=== PATIENT | male | born 1970 | race Caucasian/White ===

== ENCOUNTER 2018-05-04 16:34 | Observation (INO) ==
[2018-05-04] MEDS ORDERED: Nitroglycerin 0.4 MG TAB.SUBL SL ONE (16:56)
--- NOTE | 2018-05-04 16:59 | Emergency Department Note ---
Disposition Clinical Impression: Chest pain Disposition: Home, Self-Care Condition: Good Time of Disposition: 20:57 Chest Pain HPI - General Chief Complaint: ED Chest Pain Stated Complaint: chest pain Time Seen by Provider: 05/04/18 16:48 Source: patient, EMS Limitations: no limitations Vital Signs Reviewed: Yes Nursing Notes Reviewed: Yes - History of Present Illness HPI Narrative: 48-year-old male presents from home for abrupt onset dyspnea and chest pain. 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 He had sudden onset dyspnea with left-sided chest tightness. Associated with nausea, dyspnea. He had tingling in his bilateral arms and head. Out, EMS provided 81 mg aspirin 4 as well as some little nitroglycerin 1. Single nitroglycerin did not improve his chest pain. PMH: Hypertension, hyperlipidemia, diabetes mellitus type 2 on oral anti- hyperglycemics, PTSD, depression, anxiety.History of CAD or ACS. Symptoms today feel different than any previous panic attack. Family history: Father at the age of 42 from [place]. Mother at age of 67 from [place]. Grandfather at age of 67 from [place]. ROS: Positive: As above Negative: Fever, chills, vomiting, palpitations, diaphoresis, abdominal pain, unusual back pain, arm heaviness, jaw pain. Severity scale (1-10): 6 - Related Data Home Medications Medication Instructions Recorded Confirmed Atorvastatin [Lipitor] 20 mg PO HS 10/08/17 05/04/18 Cholecalciferol (D-3) [Vitamin D] 1,000 unit PO DAILY 10/08/17 05/04/18 Lisinopril/Hydrochlorothiazide 1 tab PO DAILY 10/08/17 05/04/18 [Zestoretic 20-12.5 mg Tablet] Metoprolol Succinate 100 mg PO DAILY 10/08/17 05/04/18 Multivit-Min/FA/Lycopen/Lutein 1 tab PO DAILY 10/08/17 05/04/18 [Centrum Silver Tablet] Vitamin B Complex Vit C No.4 150 mg PO DAILY 10/08/17 05/04/18 [Super B Complex] Aspirin [Lo-Dose Aspirin EC] 81 mg PO DAILY 01/28/18 05/04/18 Meloxicam [Mobic] 7.5 mg PO BID 05/04/18 05/04/18 PARoxetine HCl [Paroxetine HCl] 40 mg PO DAILY 05/04/18 05/04/18 Prazosin HCl [Minipress] 2 mg PO HS 05/04/18 05/04/18 clonazePAM [Klonopin] 0.5 mg PO DAILY PRN 05/04/18 05/04/18 metFORMIN [Glucophage] 500 mg PO BIDWM 05/04/18 05/04/18 Allergies Allergy/AdvReac Type Severity Reaction Status Date / Time No Known Allergies Allergy Verified 01/28/18 13:04 All systems ED: reviewed and negative except as stated. Review of Systems: As Per HPI Chest Pain PMH - Past Medical History Medical history: Reports: arthritis, diabetes, hyperlipidemia, hypertension, kidney stones, renal disease, other Surgical history: Reports: other Psychiatric history: Reports: anxiety, depression, PTSD - Social History Smoking Status: Current some day smoker Alcohol use: Reports: occasionally Drug use: Reports: none Physical Exam Vital Signs Reviewed General: Patient is alert, oriented, and in no acute distress. Head: atraumatic, normocephalic Eye: normal appearance, no scleral icterus, no conjunctival injection ENT: mucous membranes moist, normal external ear exam Neck: normal inspection, trachea midline, full ROM Chest: normal inspection, symmetric chest rise Respiratory: Good respiratory effort. Bilateral breath sounds are clear without wheezing, crackles, or rhonchi. Cardiovascular: Regular rate and rhythm. No clicks, rubs, gallops, or murmors. Normal heart sounds.lateral radial pulses 2/4 equal. No JVD. Abdomen: Bowel sounds present normoactive x-4 quadrants. Abdomen is soft, nondistended, and nontender. No guarding or rebound. No organomegaly noted. Musculoskeletal: Spontaneously moving all extremities. Skin: warm, Diaphoretic, intact. Neuro: Alert and oriented x4. Sensation light touch intact. Psych: Patient's affect is appropriate for situation. - General Limitations: no limitations General appearance: alert, in no apparent distress Course Course Narrative: Concern for ACS. Patient's symptoms onset just prior to arrival just initial troponin can be falsely low. Family history is concerning given his father passed of an [place] age 42. Recommend admission for chest pain rule out ACS. Patient's workup is unremarkable. The above of the patient. He has never had a cardiac workup. I am concerned given his family history of his father dying of [place] at 42. He is agreeable to admission for continued evaluation and management. Chest X-Ray 05/04/18 16:56 IMPRESSION: No acute process. D/ / German Multani MD / German Multani MD Interpreting Provider: German Multani MD Vital Signs Temperature 98.5 F 05/04/18 16:38 Pulse Rate 111 05/04/18 16:38 Respiratory Rate 16 05/04/18 16:38 Blood Pressure 107/81 05/04/18 16:38 O2 Sat by Pulse Oximetry 97 05/04/18 16:38 Temperature 98.5 F 05/04/18 16:38 Pulse Rate 111 05/04/18 16:38 Respiratory Rate 16 05/04/18 16:38 Blood Pressure 107/81 05/04/18 16:38 O2 Sat by Pulse Oximetry 95 05/04/18 17:48 Oxygen Delivery Oxygen Delivery Nasal Cannula Chest Pain - Lab Data Result diagrams: 05/04/18 17:20 05/04/18 17:20 Lab Results 05/04/18 05/04/18 05/04/18 Range/Units 17:20 17:20 17:20 WBC 10.0 (4.3-11.1) K/mcL RBC 4.64 (4.19-5.50) M/mcL Hgb 14.5 (12.9-16.9) g/dL Hct 41.4 (37.5-50.1) % MCV 89.2 (83.0-100.0) fL MCH 31.3 (28.0-33.3) pg MCHC 35.0 (31.6-35.5) g/dL RDW 14.1 (11.5-14.5) % Plt Count 211 (140-400) K/mcL MPV 10.3 (9.4-12.4) fL Immature Gran % 0.3 (0-4) % Seg Neutrophils % 71.6 % Lymphocytes % 17.1 % Monocytes % 8.4 % Eosinophils % 2.3 % Basophils % 0.3 % Neutrophils # 7.1 (1.6-8.9) K/mcL Lymphocytes # 1.7 (0.6-4.6) K/mcL Monocytes # 0.8 (0.0-1.3) K/mcL Eosinophils # 0.2 (0.0-0.6) K/mcL Basophils # 0.0 (0.0-0.2) K/mcL PT 10.9 (9.4-12.1) Seconds INR 1.0 APTT 27.9 (26.0-36.0) Seconds Sodium 134 L (136-145) mEq/L Potassium 4.0 (3.5-5.1) mEq/L Chloride 97 L (98-107) mEq/L Carbon Dioxide 25 (23-29) mEq/L BUN 27 H (6-20) mg/dL Creatinine 1.18 (0.70-1.30) mg/dL Est GFR ( Amer) > 60 (> 60) Est GFR (Non-Af Amer) > 60 (> 60) BUN/Creatinine Ratio 23 (6-26) Glucose 119 H (70-105) mg/dL Calculated Osmolality 284 (280-300) Calcium 10.5 H (8.6-10.3) mg/dL Troponin I < 0.03 (< 0.04) ng/mL Heart Score - Score History: Moderately Suspicious EKG: Non Specific repolarisation Disturbance Age: Less than 45 Risk Factors: Equal/Greater than 3 risk factor or history of atherosclerotic disease Troponin: Less than normal limit HEART Score Total: 4
[2018-05-04 17:45] LABS: Basophils % 0.3 %; Eosinophils # 0.2 K/mcL (0.0-0.6); Eosinophils % 2.3 %; Hematocrit 41.4 % (37.5-50.1); Hemoglobin 14.5 g/dL (12.9-16.9); Immature Granulocytes % 0.3 % (0-4); Lymphocytes # 1.7 K/mcL (0.6-4.6); Lymphocytes % 17.1 %; Mean Corpuscular Hemoglobin 31.3 pg (28.0-33.3); Mean Corpuscular Volume 89.2 fL (83.0-100.0); Mean Platelet Volume 10.3 fL (9.4-12.4); Monocytes # 0.8 K/mcL (0.0-1.3); Monocytes % 8.4 %; Neutrophils # 7.1 K/mcL (1.6-8.9); Platelet Count 211 K/mcL (140-400); Red Blood Count 4.64 M/mcL (4.19-5.50); Red Cell Distribution Width 14.1 % (11.5-14.5); Segmented Neutrophils % 71.6 %
[2018-05-04 17:50] LABS: Prothrombin Time 10.9 Seconds (9.4-12.1)
[2018-05-04 17:52] LABS: Activated Partial Thrombo Time 27.9 Seconds (26.0-36.0)
[2018-05-04 18:05] LABS: BUN/Creatinine Ratio 23 (6-26); Blood Urea Nitrogen 27 mg/dL (6-20); Calcium 10.5 mg/dL (8.6-10.3); Carbon Dioxide 25 mEq/L (23-29); Chloride 97 mEq/L (98-107); Glucose 119 mg/dL (70-105); Osmolality,Calculated 284 (280-300); Sodium 134 mEq/L (136-145); Troponin I < 0.03 ng/mL (< 0.04); eGFR For Non-African Americans > 60 (> 60)
--- NOTE | 2018-05-04 18:09 | Emergency Department Note ---
Disposition Clinical Impression: Chest pain Disposition: Home, Self-Care Condition: Undetermined Forms: ED Satisfaction Letter General Adult HPI - General Chief complaint: ED Chest Pain Stated complaint: chest pain Time Seen by Provider: 05/04/18 16:48 Source: patient, EMS Limitations: no limitations - History of Present Illness Pain Scale: 6 - Related Data Home Medications Medication Instructions Recorded Confirmed Atorvastatin [Lipitor] 40 mg PO HS 10/08/17 01/28/18 Cholecalciferol (D-3) [Vitamin D] 1,000 unit PO DAILY 10/08/17 01/28/18 Lisinopril/Hydrochlorothiazide 1 tab PO DAILY 10/08/17 01/28/18 [Zestoretic 20-12.5 mg Tablet] Metoprolol Succinate 100 mg PO DAILY 10/08/17 01/28/18 Multivit-Min/FA/Lycopen/Lutein 1 tab PO DAILY 10/08/17 01/28/18 [Centrum Silver Tablet] Vitamin B Complex Vit C No.4 150 mg PO DAILY 10/08/17 01/28/18 [Super B Complex] Aspirin [Lo-Dose Aspirin EC] 81 mg PO DAILY 01/28/18 01/28/18 Previous Rx's Medication Instructions Recorded Clindamycin [Cleocin] 150 mg PO Q6HR #7 capsule 01/27/18 HYDROcodone/Acet 5/325 mg [[place] 1 tab PO Q8H PRN 5 Days #15 tab 01/27/18 5-325 mg] Allergies Allergy/AdvReac Type Severity Reaction Status Date / Time No Known Allergies Allergy Verified 01/28/18 13:04 Past Medical History - Past Medical History Medical history: Reports: arthritis, diabetes, hyperlipidemia, hypertension, kidney stones, renal disease, other Surgical history: Reports: other Psychiatric history: Reports: anxiety, depression, PTSD - Social History Smoking Status: Current some day smoker Smokeless Tobacco Status: Yes Alcohol use: Reports: occasionally Drug use: Reports: none Physical Exam - General Limitations: no limitations General appearance: alert, in no apparent distress Course Vital Signs Temperature 98.5 F 05/04/18 16:38 Pulse Rate 111 05/04/18 16:38 Respiratory Rate 16 05/04/18 16:38 Blood Pressure 107/81 05/04/18 16:38 O2 Sat by Pulse Oximetry 97 05/04/18 16:38 Temperature 98.5 F 05/04/18 16:38 Pulse Rate 111 05/04/18 16:38 Respiratory Rate 16 05/04/18 16:38 Blood Pressure 107/81 05/04/18 16:38 O2 Sat by Pulse Oximetry 95 05/04/18 17:48 Oxygen Delivery Oxygen Delivery Nasal Cannula Medical Decision Making - Lab Data Result diagrams: 05/04/18 17:20 05/04/18 17:20 Lab Results 05/04/18 05/04/18 05/04/18 Range/Units 17:20 17:20 17:20 WBC 10.0 (4.3-11.1) K/mcL RBC 4.64 (4.19-5.50) M/mcL Hgb 14.5 (12.9-16.9) g/dL Hct 41.4 (37.5-50.1) % MCV 89.2 (83.0-100.0) fL MCH 31.3 (28.0-33.3) pg MCHC 35.0 (31.6-35.5) g/dL RDW 14.1 (11.5-14.5) % Plt Count 211 (140-400) K/mcL MPV 10.3 (9.4-12.4) fL Immature Gran % 0.3 (0-4) % Seg Neutrophils % 71.6 % Lymphocytes % 17.1 % Monocytes % 8.4 % Eosinophils % 2.3 % Basophils % 0.3 % Neutrophils # 7.1 (1.6-8.9) K/mcL Lymphocytes # 1.7 (0.6-4.6) K/mcL Monocytes # 0.8 (0.0-1.3) K/mcL Eosinophils # 0.2 (0.0-0.6) K/mcL Basophils # 0.0 (0.0-0.2) K/mcL PT 10.9 (9.4-12.1) Seconds INR 1.0 APTT 27.9 (26.0-36.0) Seconds Sodium 134 L (136-145) mEq/L Potassium 4.0 (3.5-5.1) mEq/L Chloride 97 L (98-107) mEq/L Carbon Dioxide 25 (23-29) mEq/L BUN 27 H (6-20) mg/dL Creatinine 1.18 (0.70-1.30) mg/dL Est GFR ( Amer) > 60 (> 60) Est GFR (Non-Af Amer) > 60 (> 60) BUN/Creatinine Ratio 23 (6-26) Glucose 119 H (70-105) mg/dL Calculated Osmolality 284 (280-300) Calcium 10.5 H (8.6-10.3) mg/dL Troponin I < 0.03 (< 0.04) ng/mL Attestation Statement - Attestation Attestation: I examined this patient and my medical decision-making was reviewed with the Resident Physician. I agree with the documented findings, disposition and treatment plan as described except to the extent set forth below. 48-year-old male presents emergency room for chest pain. 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 States he was out in the heat getting overheated and thought that it caused his symptoms of some shortness of breath bilateral arm tingling and some chest discomfort. He does have a significant family history of coronary artery disease. He has a negative troponin here in the ER. Normal labs. Normal EKG. I advised the patient that I would like him to stay in the hospital but he has declined. He states he would like to go home. He does not want to be in the hospital. Explain the risks that if he was having a heart problem that we would not be able to monitor this he still declined and would like to go home. Recommended outpatient follow-up with a primary physician.
[2018-05-05] MEDS ORDERED: Naloxone 0.4 MG/ML INJ IVP PRN (00:03)
[2018-05-05] MEDS ORDERED: *HR* Dextrose 50 % in Water (Syg) 50 ML SYRINGE IVP PRN (00:04)
[2018-05-05] MEDS ORDERED: D5% in Water 1,000 ML IVC PRN (00:04)
[2018-05-05] MEDS ORDERED: Dextrose Gel 15 GM/37.5 ML TUBE PO PRN ×2 (00:04)
--- NOTE | 2018-05-05 00:07 | Internal Med History&Physical ---
Date of Encounter: 05/04/18 Time of Encounter: 23:30 Internal Medicine - H&P: HPI Chief complaint: Chest pain Admitted From: Emergency Dept Plans for Post Hospital Care: Home History of present illness: Mr. 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 Pain radiated to his left arm, with a tingling sensation. He went and got his fiance who the called EMS. He has a history of service and has had heat stroke in the past, but he says this was different. He has had chest pain in the past as well, but he usually dismisses it until it goes away. He describes this pain as a sharp poker going through his chest to his back. He denies vision changes, nausea and vomiting. He has no abdominal pain, diarrhea or constipation. Currently he denies chest pain and shortness of breath. He received ASA and nitro in the ambulance which helped his pain. In the ER his troponin was negative, chest x-ray showed no acute process and EKG was unremarkable. He has a significant family history of cardiac problems, including his father having a heart attack in his early 40's. He was admitted for further management of his chest pain. He has typical medical care at the [place], has had a stress test in the past but more than 3 years ago. Past Med Surg Social Fam HX - Past Medical History Medical history: arthritis, diabetes, hyperlipidemia, hypertension, kidney stones, renal disease, other Additional medical history: sleep apnea Psychiatric history: anxiety, depression, PTSD - Past Surgical History Surgical History: other Additional surgical history: neck x 2. enrico knee scopes. enrico shoulder scopes. l1 s1 fusion - Social History Smoking Status: Current some day smoker Smokeless Tobacco Status: Yes Alcohol use: occasionally Drug use: none - Family History Father Age at : 42 Cause of : OR Hx Family Cardiac Disorders: Yes (OR) Mother Living Status: Cause of : OR Hx Family Cardiac Disorders: Yes (OR) Hx Family Endocrine Disorder: Yes (DM) Brother Hx Family Cardiac Disorders: Yes (HTN) Hx Family Endocrine Disorder: Yes (DM) Internal Medicine - H&P: Meds Atorvastatin [Lipitor] 20 mg PO HS 10/08/17 [History] Cholecalciferol (D-3) [Vitamin D] 1,000 unit PO DAILY 10/08/17 [History] Lisinopril/Hydrochlorothiazide [Zestoretic 20-12.5 mg Tablet] 1 tab PO DAILY [History] Metoprolol Succinate 100 mg PO DAILY 10/08/17 [History] Multivit-Min/FA/Lycopen/Lutein [Centrum Silver Tablet] 1 tab PO DAILY 10/08/17 [ History] Vitamin B Complex Vit C No.4 [Super B Complex] 150 mg PO DAILY 10/08/17 [History ] Aspirin [Lo-Dose Aspirin EC] 81 mg PO DAILY 01/28/18 [History] Meloxicam [Mobic] 7.5 mg PO BID 05/04/18 [History] PARoxetine HCl [Paroxetine HCl] 40 mg PO DAILY 05/04/18 [History] Prazosin HCl [Minipress] 2 mg PO HS 05/04/18 [History] clonazePAM [Klonopin] 0.5 mg PO DAILY PRN 05/04/18 [History] metFORMIN [Glucophage] 500 mg PO BIDWM 05/04/18 [History] 3 Allergy/AdvReac Type Severity Reaction Status Date / Time No Known Allergies Allergy Verified 01/28/18 13:04 All Systems PM: A 10-system review of systems was performed and is negative for pertinent findings except as documented above in the HPI. - Constitutional Vitals: Temp Pulse Resp BP Pulse Ox 97.9 F 91 16 114/68 97 05/04/18 23:35 05/04/18 23:35 05/04/18 23:35 05/04/18 23:35 05/04/18 23:35 General appearance: Present: cooperative, A&O X 3, pleasant, no acute distress, answers questions appropriately Exam: as above - Head Head exam: Present: normal inspection - Eye Eye exam: Present: EOMI, normal appearance - Neck Neck exam general surgery: Absent: tenderness - Respiratory Respiratory exam: Present: CTAB. Absent: chest wall tenderness, decreased breath sounds, wheezes - Cardiovascular Cardiovascular exam: Present: RRR. Absent: diastolic murmur, systolic murmur - GI/Abdominal GI/Abdominal exam: Present: normal bowel sounds, soft. Absent: tenderness - Extremities Exam Extremities exam: Present: warm, radial pulses palpable and symmetrical. Absent : pedal edema, tenderness - Neurological Exam Neurological exam: Present: no focal deficits, strengths equal and symetr throughout. Absent: facial droop, speech deficit - Skin Skin exam: Present: dry, normal color, warm Internal Med - H&P Results - Labs CBC & Chem 7: 05/05/18 06:05 05/05/18 06:05 Labs: Cardiac Enzymes 05/04/18 Range/Units 23:19 Troponin I < 0.03 (< 0.04) ng/mL - Assessment and plan (1) Chest pain Current Visit: Yes Status: Acute Assessment and plan: Now resolved. 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 Qualifiers: Hypertension type: essential hypertension Qualified Code(s): I10 - Essential (primary) hypertension - Time Spent With Patient Total time spent is greater than 50% in coordination of care (as documented) at patient's floor/unit and/or counseling patient: Greater than 35 minutes
[2018-05-05] MEDS: Insulin LISPRO 300 UNITS/3 ML VIAL SQ SCH ×2 (05:54→12:38)
[2018-05-05 06:48] LABS: Hematocrit 41.1 % (37.5-50.1); Mean Corpuscular HGB Conc 34.1 g/dL (31.6-35.5); Mean Corpuscular Hemoglobin 30.1 pg (28.0-33.3); Mean Corpuscular Volume 88.4 fL (83.0-100.0); Mean Platelet Volume 10.2 fL (9.4-12.4); Platelet Count 207 K/mcL (140-400); Red Blood Count 4.65 M/mcL (4.19-5.50); Red Cell Distribution Width 14.4 % (11.5-14.5)
[2018-05-05 07:08] LABS: BUN/Creatinine Ratio 21 (6-26); Blood Urea Nitrogen 23 mg/dL (6-20); Calcium 9.8 mg/dL (8.6-10.3); Carbon Dioxide 29 mEq/L (23-29); Chloride 98 mEq/L (98-107); Glucose 125 mg/dL (70-105); Osmolality,Calculated 287 (280-300); Potassium 4.2 mEq/L (3.5-5.1); Sodium 136 mEq/L (136-145); eGFR For Non-African Americans > 60 (> 60)
[2018-05-05] MEDS ORDERED: clonazePAM 0.5 MG TABLET PO PRN (07:58)
--- NOTE | 2018-05-05 08:53 | Event Note ---
Date of Encounter: 05/05/18 Time of Encounter: 08:53 Currently Chest pain free- Presented after experiencing CP and SOB with pain radiating to left arm. Troponin negative x3 EKG with no ST Twave abnormalities He does ahve a strong cardiac hx with his Father having a CT in his 40's. The patient had a stress test 3 yrs ago at the [place] which he states was negative. His BP has been elevated this am however he did receive his BP meds. We will have him undergo cardiac stress test and resume home medications
[2018-05-05] MEDS ORDERED: Metoprolol XL (24 HR) Succ 50 MG TAB.ER.24H PO SCH (09:00)
[2018-05-05] MEDS ORDERED: Aspirin Enteric Coated 81 MG Tablet PO SCH (09:00)
[2018-05-05] MEDS ORDERED: Cholecalciferol (D-3) 1,000 UNIT TABLET PO SCH (09:00)
[2018-05-05] MEDS ORDERED: Lisinopril-HCTZ 20-12.5mg TABLET PO SCH (09:00)
[2018-05-05] MEDS ORDERED: Regadenoson 0.4 MG/5 ML SYRINGE IVP ONE ×2 (10:29→10:38)
--- NOTE | 2018-05-05 14:06 | Discharge Summary ---
- NOTES TO OUTPATIENT PROVIDER Notes to Outpatient Provider: underwent cardiac stress tets which was neative for any ischemia or infarct Orders not resulted at time of discharge: Pending orders 05/05/18 08:48 NM azra perf SPECT multi [NM] Routine Date of Encounter: 05/05/18 Time of Encounter: 14:06 - Discharge Diagnosis (1) Chest pain Priority: Primary Status: Acute Qualifiers: Chest pain type: unspecified Qualified Code(s): R07.9 - Chest pain, unspecified (2) Diabetes Priority: Primary Status: Acute Qualifiers: Diabetes mellitus type: type 2 Diabetes mellitus group home insulin use: without adjunct faculty for medical terminology use Diabetes mellitus complication status: without complication Qualified Code(s): E11.9 - Type 2 diabetes mellitus without complications (3) Hypertension Priority: Secondary Status: Acute Qualifiers: Hypertension type: essential hypertension Qualified Code(s): I10 - Essential (primary) hypertension Hospital course: Mr. Headley is a 48 year old male with past medical hx DM HLD HTN renal disease Currently Chest pain free- Presented after experiencing CP and SOB with pain radiating to left arm he was working outside in the heat for several hours . Troponin negative x3 EKG with no ST Twave abnormalities He does ahve a strong cardiac hx with his Father having a GA in his 40's. The patient had a stress test 3 yrs ago at the [place] which he states was negative. His BP has been elevated this am however he did not receive his BP meds. He underwent a cardiac stress test which was negative for any ischemia or infarct. I suspect his CP was rt elevated BP - he will need to monitor BP and keep log. He will follow up with PCP since this provider knows him best and can adjust medications accordingly- cont home medications He is hemodynamically stable and ready for discharge Discharge discussed with: patient - Time Spent with Patient Total time spent providing and/or coordinating discharge services: - Discharge Medications Home Medications: Atorvastatin [Lipitor] 20 mg PO HS 10/08/17 [History] Cholecalciferol (D-3) [Vitamin D] 1,000 unit PO DAILY 10/08/17 [History] Lisinopril/Hydrochlorothiazide [Zestoretic 20-12.5 mg Tablet] 1 tab PO DAILY [History] Metoprolol Succinate 100 mg PO DAILY 10/08/17 [History] Multivit-Min/FA/Lycopen/Lutein [Centrum Silver Tablet] 1 tab PO DAILY 10/08/17 [ History] Vitamin B Complex Vit C No.4 [Super B Complex] 150 mg PO DAILY 10/08/17 [History ] Aspirin [Lo-Dose Aspirin EC] 81 mg PO DAILY 01/28/18 [History] Meloxicam [Mobic] 7.5 mg PO BID 05/04/18 [History] PARoxetine HCl [Paroxetine HCl] 40 mg PO DAILY 05/04/18 [History] Prazosin HCl [Minipress] 2 mg PO HS 05/04/18 [History] clonazePAM [Klonopin] 0.5 mg PO DAILY PRN 05/04/18 [History] metFORMIN [Glucophage] 500 mg PO BIDWM 05/04/18 [History] Allergies/Adverse Reactions: 3 Allergy/AdvReac Type Severity Reaction Status Date / Time No Known Allergies Allergy Verified 01/28/18 13:04 Date of admission: 05/04/18 20:05 [facility] care [facility] Discharging clinician: Josephine Rosado Anticipated date of discharge: 05/05/18 - Constitutional Vitals: Temp Pulse Resp BP Pulse Ox 98.7 F 103 18 112/72 97 05/05/18 12:18 05/05/18 12:18 05/05/18 12:18 05/05/18 12:18 05/05/18 12:18 General appearance: Present: cooperative, A&O X 3, pleasant, no acute distress, answers questions appropriately Exam: see above - Head Head exam: Present: atraumatic, normocephalic - Eye Eye exam: Present: PERRL, conjuntiva pink, sclera anicteric Pupils: Present: PERRL - Neck Neck exam general surgery: Present: supple, trachea midline. Absent: lymphadenopathy - Respiratory Respiratory exam: Present: CTAB. Absent: accessory muscle use, rales, rhonchi, wheezes - Cardiovascular Cardiovascular exam: Present: RRR, +S1, +S2. Absent: diastolic murmur, gallop, rubs, systolic murmur - GI/Abdominal GI/Abdominal exam: Present: normal bowel sounds, soft, no peritoneal signs. Absent: distended, tenderness - Extremities Exam Extremities exam: Present: warm, radial pulses palpable and symmetrical. Absent : calf tenderness, cyanotic, pedal edema - Neurological Exam Neurological exam: Present: CN II-XII intact, oriented X3, no focal deficits. Absent: pronater drift, facial droop, speech deficit - Skin Skin exam: Present: dry, intact - Patient Status Disposition: Home, Self-Care Condition: Good Functional capacity at discharge: independent ambulation Overall status at discharge: patient is back to baseline - Discharge Instructions Instructions: Chest Pain (DC), Diabetes Mellitus Type 2 in Adults (DC), Chronic Hypertension (DC) [facility] Provider[facility] - 05/12/18 1:30 pm - Diet and Activity Activity: resume usual activities as tolerated Diet: low salt diet
[2018-05-05 15:56] VITALS: BP 123/79
[2018-05-05] MEDS ORDERED: *HR* Heparin 5,000 UNIT/ML VIAL SQ SCH (18:00)
--- NOTE | 2018-05-08 08:46 | Electrocardiograph Report ---
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
== END 2018-05-05 16:50 | disposition home or self-care (01) ==
LOC: EMEROOARM 16:34 → 3BNU 16:34
PROVIDERS: ADMIT Pediatrics; ATTEND Pediatrics

== ENCOUNTER 2019-03-08 01:12 | Inpatient (IN) ==
--- NOTE | 2019-03-08 01:31 | Emergency Department Note ---
Disposition Clinical Impression: Suicidal ideation Disposition: Still a Patient Condition: Good Referrals: NONE,PCP [Primary Care Provider] - Time of Disposition: 06:44 Psych HPI - General Stated Complaint: SI Time Seen by Provider: 03/08/19 01:14 Source: patient, EMS Mode of arrival: EMS Limitations: no limitations Nursing Notes Reviewed: Yes Vital Signs Reviewed: Yes - History of Present Illness HPI Narrative: 49 yo male presents via EMS after a suicide attempt. The patient was intoxicated and attempted jumping off a bridge before being talked down by police. Pt states his depression got the better of him after he received a phone call from his oldest son on his 49th birthday and his son told him he "was worthless and he wanted to beat the shit out of him." Pt has never attempted suicide before. He has drank beer tonight and taken Marijuana in the past but denies other drug use and did not attempt overdose tonight. He denies HI, and visual and auditory hallucinations. - Related Data Home Medications Medication Instructions Recorded Confirmed Atorvastatin [Lipitor] 40 mg PO HS 10/08/17 12/16/18 Lisinopril/Hydrochlorothiazide 1 tab PO DAILY 10/08/17 12/16/18 [Zestoretic 20-12.5 mg Tablet] Metoprolol Succinate 100 mg PO DAILY 10/08/17 12/16/18 Multivit-Min/FA/Lycopen/Lutein 1 tab PO DAILY 10/08/17 12/16/18 [Centrum Silver Tablet] Meloxicam [Mobic] 7.5 mg PO DAILY 05/04/18 12/16/18 PARoxetine HCl [Paroxetine HCl] 40 mg PO QPM 05/04/18 12/16/18 metFORMIN [Glucophage] 500 mg PO BIDWM 05/04/18 12/16/18 ARIPiprazole [Abilify] 5 mg PO QPM 12/16/18 12/16/18 Aspirin [Lo-Dose Aspirin EC] 81 mg PO DAILY 12/16/18 12/16/18 Eszopiclone 1 mg PO HS 12/16/18 12/16/18 Testosterone [Striant] 30 mg PO BID 12/16/18 12/16/18 Varenicline Tartrate [Chantix 1 mg PO AD 12/16/18 12/16/18 Continuing Months Pack] Vitamin B Complex [Balanced B-50] 1 each PO DAILY 12/16/18 12/16/18 Allergies Allergy/AdvReac Type Severity Reaction Status Date / Time No Known Allergies Allergy Verified 12/16/18 07:50 All systems ED: reviewed and negative except as stated. Review of Systems: As Per HPI Constitutional: Denies: fever Cardiovascular: Denies: chest pain, dyspnea on exertion Respiratory: Denies: cough, dyspnea, wheezes Gastrointestinal: Denies: abdominal pain, nausea, vomiting Genitourinary: Denies: dysuria, hematuria Musculoskeletal: Denies: back pain, neck pain Integumentary: Denies: rash Neurological: Denies: headache Psychiatric: Reports: anxiety, depression, suicidal thoughts. Denies: homicidal thoughts, auditory hallucinations, visual hallucinations Endocrine: Denies: fatigue Past Medical History - Past Medical History Attestation: Yes The following information was validated with the patient. Source: patient Medical history: Reports: arthritis, diabetes, hyperlipidemia, hypertension, kidney stones, other Surgical history: Reports: knee replacement, orthopedic, other, other Psychiatric history: Reports: anxiety, depression, PTSD - Social History Smoking Status: Never smoker Smokeless Tobacco Status: No Alcohol use: Reports: occasionally Drug use: Reports: none Physical Exam - General Limitations: no limitations General appearance: alert, in distress (tearful on exam) - Head Head exam: other (burn grimaldo on lips from eating hot pizza several days ago) - Eye Eye exam: Present: normal appearance, EOMI - ENT ENT exam: normal exam, normal oropharynx - Neck Neck exam: Present: normal inspection. Absent: tenderness, lymphadenopathy - Chest Chest inspection: Present: normal inspection. Absent: tenderness, rash - Respiratory Respiratory exam: Present: normal lung sounds bilaterally. Absent: wheezes - Cardiovascular Cardiovascular exam: Present: regular rate, normal rhythm - Abdominal Exam Abdominal exam: Present: soft, Non-Tender. Absent: distention, guarding, rebound, rigidity - Extremities Exam Extremities exam: Present: normal inspection. Absent: tenderness, pedal edema - Neurological Exam Neurological exam: Present: alert, oriented X3 - Psychiatric Psychiatric exam: Present: depressed - Skin Skin exam: Present: warm, dry, intact Course Vital Signs Temperature 98.8 F 03/08/19 01:18 Pulse Rate 96 03/08/19 01:18 Respiratory Rate 20 03/08/19 01:18 Blood Pressure 111/78 03/08/19 01:18 O2 Sat by Pulse Oximetry 99 03/08/19 01:18 Temperature 98.8 F 03/08/19 01:18 Pulse Rate 96 03/08/19 01:18 Respiratory Rate 20 03/08/19 01:18 Blood Pressure 111/78 03/08/19 01:18 O2 Sat by Pulse Oximetry 99 03/08/19 01:18 Oxygen Delivery Oxygen Delivery Room Air Psych - MDM Narrative Medical decision making narrative: Patient presents after a suicide attempt by trying to jump off a bridge while intoxicated. We will do the med clearance labs and then consult psychiatry for further evaluation of this patient. He has no requests at this time. Patient was pink slipped at 1:26 AM on March 08. Initial EtOH was elevated at 1:30 in all other lab work was within normal limits. We will recheck the EtOH level at 4:30 AM. Repeat EtOH is 53. We will consult 1A for further management. This patient's disposition will be signed out to the day team doctor Liz and Dr. Payan. - Lab Data Result diagrams: 03/08/19 01:47 03/08/19 01:47 Lab Results 03/08/19 03/08/19 03/08/19 Range/Units 01:47 01:47 02:38 WBC 6.7 (4.3-11.1) K/mcL RBC 4.68 (4.19-5.50) M/mcL Hgb 14.0 (12.9-16.9) g/dL Hct 41.5 (37.5-50.1) % MCV 88.7 (83.0-100.0) fL MCH 29.9 (28.0-33.3) pg MCHC 33.7 (31.6-35.5) g/dL RDW 13.4 (11.5-14.5) % Plt Count 218 (140-400) K/mcL MPV 10.1 (9.4-12.4) fL Immature Gran % 0.4 (0-4) % Seg Neutrophils % 60.7 % Lymphocytes % 28.8 % Monocytes % 6.9 % Eosinophils % 2.8 % Basophils % 0.4 % Neutrophils # 4.1 (1.6-8.9) K/mcL Lymphocytes # 1.9 (0.6-4.6) K/mcL Monocytes # 0.5 (0.0-1.3) K/mcL Eosinophils # 0.2 (0.0-0.6) K/mcL Basophils # 0.0 (0.0-0.2) K/mcL Sodium 135 L (136-145) mEq/L Potassium 4.2 (3.5-5.1) mEq/L Chloride 98 (98-107) mEq/L Carbon Dioxide 22 L (23-29) mEq/L BUN 12 (6-20) mg/dL Creatinine 1.03 (0.70-1.30) mg/dL Est GFR ( Amer) > 60 (> 60) Est GFR (Non-Af Amer) > 60 (> 60) BUN/Creatinine Ratio 12 (6-26) Glucose 156 H (70-105) mg/dL Calculated Osmolality 283 (280-300) Calcium 9.2 (8.6-10.3) mg/dL Urine Color Yellow (Yellow) Urine Clarity Clear (Clear) Urine pH 6.0 (5.0-8.0) pH Units Ur Specific [place] 1.009 L (1.010-1.025) Urine Protein Negative (Neg-Trace) mg/dL Urine Glucose (UA) Normal (Normal) mg/dL Urine Ketones Negative (Negative) mg/dL Urine Blood Negative (Negative) Urine Nitrite Negative (Negative) Urine Bilirubin Negative (Negative) Urine Urobilinogen Normal (Normal) mg/dL Ur Leukocyte Esterase Negative (Negative) Salicylates < 2.5 L (15.0-30.0) mg/dL Urine Opiates Screen (Cnpgtb=413) ng/mL Ur Buprenorphine Scrn (Cutoff=5) ng/mL Acetaminophen < 10 L (10-20) mcg/mL Ur Barbiturates Screen (Kzxtjg=156) ng/mL Ur Phencyclidine Scrn (Cutoff=25) ng/mL Ur Amphetamines Screen (Mfchax=7106) ng/mL U Benzodiazepines Scrn (Ccmmmc=058) ng/mL Urine Cocaine Screen (Cutoff= 300) ng/mL U Marijuana (THC) Screen (Cutoff = 50) ng/mL Ur Drug Screen Interp Ethyl Alcohol 130 H (Less than 10) mg/dL 03/08/19 03/08/19 Range/Units 02:38 04:41 WBC (4.3-11.1) K/mcL RBC (4.19-5.50) M/mcL Hgb (12.9-16.9) g/dL Hct (37.5-50.1) % MCV (83.0-100.0) fL MCH (28.0-33.3) pg MCHC (31.6-35.5) g/dL RDW (11.5-14.5) % Plt Count (140-400) K/mcL MPV (9.4-12.4) fL Immature Gran % (0-4) % Seg Neutrophils % % Lymphocytes % % Monocytes % % Eosinophils % % Basophils % % Neutrophils # (1.6-8.9) K/mcL Lymphocytes # (0.6-4.6) K/mcL Monocytes # (0.0-1.3) K/mcL Eosinophils # (0.0-0.6) K/mcL Basophils # (0.0-0.2) K/mcL Sodium (136-145) mEq/L Potassium (3.5-5.1) mEq/L Chloride (98-107) mEq/L Carbon Dioxide (23-29) mEq/L BUN (6-20) mg/dL Creatinine (0.70-1.30) mg/dL Est GFR ( Amer) (> 60) Est GFR (Non-Af Amer) (> 60) BUN/Creatinine Ratio (6-26) Glucose (70-105) mg/dL Calculated Osmolality (280-300) Calcium (8.6-10.3) mg/dL Urine Color (Yellow) Urine Clarity (Clear) Urine pH (5.0-8.0) pH Units Ur Specific [place] (1.010-1.025) Urine Protein (Neg-Trace) mg/dL Urine Glucose (UA) (Normal) mg/dL Urine Ketones (Negative) mg/dL Urine Blood (Negative) Urine Nitrite (Negative) Urine Bilirubin (Negative) Urine Urobilinogen (Normal) mg/dL Ur Leukocyte Esterase (Negative) Salicylates (15.0-30.0) mg/dL Urine Opiates Screen Negative (Fwlewf=908) ng/mL Ur Buprenorphine Scrn Negative (Cutoff=5) ng/mL Acetaminophen (10-20) mcg/mL Ur Barbiturates Screen Negative (Ouptgh=497) ng/mL Ur Phencyclidine Scrn Negative (Cutoff=25) ng/mL Ur Amphetamines Screen Negative (Imhhyd=4359) ng/mL U Benzodiazepines Scrn Negative (Hvqnaz=137) ng/mL Urine Cocaine Screen Negative (Cutoff= 300) ng/mL U Marijuana (THC) Screen Negative (Cutoff = 50) ng/mL Ur Drug Screen Interp See Below Ethyl Alcohol 58 H (Less than 10) mg/dL Psychiatric Medical Clearance - Medical Clearance Checklist Medical History: No Social History Section defined Current Vitals: Last Vital Signs Temp 98.8 F 03/08/19 01:18 Pulse 96 03/08/19 01:18 Resp 20 03/08/19 01:18 BP 111/78 03/08/19 01:18 Pulse Ox 99 03/08/19 01:18 Psychiatric Lab Panel: Drug Levels and Toxicity 03/08/19 03/08/19 03/08/19 01:47 02:38 04:41 Urine Opiates Screen Negative Acetaminophen < 10 L Ur Barbiturates Screen Negative Ur Phencyclidine Scrn Negative Ur Amphetamines Screen Negative U Benzodiazepines Scrn Negative Urine Cocaine Screen Negative U Marijuana (THC) Screen Negative Ethyl Alcohol 130 H 58 H Abnormal Labs: Abnormal lab results Sodium 135 mEq/L (136-145) L 03/08/19 01:47 Carbon Dioxide 22 mEq/L (23-29) L 03/08/19 01:47 Glucose 156 mg/dL (70-105) H 03/08/19 01:47 Ur Specific [place] 1.009 (1.010-1.025) L 03/08/19 02:38 Salicylates < 2.5 mg/dL (15.0-30.0) L 03/08/19 01:47 Acetaminophen < 10 mcg/mL (10-20) L 03/08/19 01:47 Ethyl Alcohol 58 mg/dL (Less than 10) H 03/08/19 04:41 Statement of Medical Clearance: I have evaluated the patient, reviewed diagnostic information, and certify that the patient's medical condition is sufficiently stable that transfer to the psychiatric unit does not pose a significant risk of deterioration. Attestation Statement - Attestation Attestation: Dr. Gamboa note: Patient seen in conjunction with emergency medicine resident Dr. Leonor Mora. Please see her charting for complete documentation. Spent [id number] time with the patient and agree with patient's treatment and disposition. Patient got drunk today and had over 12 beers per his history. He was with friends and his fiancee and they were having some special food for his 49th birthday. He was feeling well but then his 25-year-old son called him and criticized him and then he did not hear from his 18-year-old son this upset him. He reports that his fiancee was playing some side country music around midnight so the health systems: Because he wanted somebody to talk to and walked up onto a bridge at 1. and was found by the police. He is remorseful for this action and says it is never done this before. He assures me he will not do this again. His behavior is very concerning he will need to be evaluated by the psychiatric team after his alcohol level normalizes. Medically stable at this time of signout at [address] Hill
[2019-03-08 01:54] LABS: Basophils % 0.4 %; Eosinophils # 0.2 K/mcL (0.0-0.6); Eosinophils % 2.8 %; Hematocrit 41.5 % (37.5-50.1); Immature Granulocytes % 0.4 % (0-4); Lymphocytes # 1.9 K/mcL (0.6-4.6); Lymphocytes % 28.8 %; Mean Corpuscular HGB Conc 33.7 g/dL (31.6-35.5); Mean Corpuscular Hemoglobin 29.9 pg (28.0-33.3); Mean Corpuscular Volume 88.7 fL (83.0-100.0); Mean Platelet Volume 10.1 fL (9.4-12.4); Monocytes # 0.5 K/mcL (0.0-1.3); Monocytes % 6.9 %; Neutrophils # 4.1 K/mcL (1.6-8.9); Platelet Count 218 K/mcL (140-400); Red Blood Count 4.68 M/mcL (4.19-5.50); Red Cell Distribution Width 13.4 % (11.5-14.5); Segmented Neutrophils % 60.7 %; White Blood Count 6.7 K/mcL (4.3-11.1)
[2019-03-08 02:22] LABS: Acetaminophen < 10 mcg/mL (10-20); BUN/Creatinine Ratio 12 (6-26); Blood Urea Nitrogen 12 mg/dL (6-20); Calcium 9.2 mg/dL (8.6-10.3); Carbon Dioxide 22 mEq/L (23-29); Chloride 98 mEq/L (98-107); Ethanol 130 mg/dL (Less than 10); Glucose 156 mg/dL (70-105); Osmolality,Calculated 283 (280-300); Potassium 4.2 mEq/L (3.5-5.1); Salicylate < 2.5 mg/dL (15.0-30.0); Sodium 135 mEq/L (136-145); eGFR For African Americans > 60 (> 60); eGFR For Non-African Americans > 60 (> 60)
[2019-03-08 02:57] LABS: Bilirubin,Urine Negative (Negative); Blood,Urine Negative (Negative); Clarity,Urine Clear (Clear); Color,Urine Yellow (Yellow); Glucose,Urine (UA) Normal (Normal); Ketones,Urine Negative (Negative); Leukocyte Esterase,Urine Negative (Negative); Nitrite,Urine Negative (Negative); Protein,Urine Negative (Neg-Trace); Specific Gravity,Urine 1.009 (1.010-1.025); Urobilinogen,Urine Normal (Normal)
[2019-03-08 03:07] LABS: Amphetamine Screen,Urine Negative ng/mL (Cutoff=1000); Barbiturate Screen,Urine Negative ng/mL (Cutoff=200); Benzodiazepines Screen,Urine Negative ng/mL (Cutoff=200); Cannabinoid Screen,Urine Negative ng/mL (Cutoff = 50); Cocaine Screen,Urine Negative ng/mL (Cutoff= 300); Opiate Screen,Urine Negative ng/mL (Cutoff=300); Phencyclidine Screen,Urine Negative ng/mL (Cutoff=25)
[2019-03-08] MEDS ORDERED: Mag Hydrox/Al Hydrox/Simeth 30 ML UDC PO PRN (07:05)
[2019-03-08] MEDS ORDERED: Haloperidol Lactate 5 MG/ML VIAL IM PRN (07:05)
[2019-03-08] MEDS ORDERED: traZODone 50 MG TABLET PO PRN (07:05)
[2019-03-08] MEDS ORDERED: MOM Conc 10 ML UD.LIQ PO PRN (07:05)
[2019-03-08] MEDS ORDERED: *HR* LORazepam 2 MG/ML VIAL IM PRN (07:05)
[2019-03-08] MEDS ORDERED: *HR* LORazepam 1 MG TABLET PO PRN (07:05)
[2019-03-08] MEDS ORDERED: Acetaminophen 325 MG TABLET PO PRN (07:05)
[2019-03-08] MEDS ORDERED: hydrOXYzine pamoate 25 MG CAPSULE PO PRN (07:05)
[2019-03-08] MEDS ORDERED: clonazePAM 0.5 MG TABLET PO PRN (10:05)
--- NOTE | 2019-03-08 10:22 | Psychiatry History & Physical ---
Date of Encounter: 03/08/19 Time of Encounter: 10:10 History of Present Illness Patient Stated Chief Complaint: suicidal ideation Medicare Admission Attestation: For traditional Medicare patients the provided hospital inpatient services are reasonable and necessary and in the case of services not specified as inpatient-only under 42 CFR 419.22 (n), that they are appropriately provided as inpatient services in accordance 42 CFR 412.3. For Critical Access Hospital the patient may reasonably be expected to be discharged or transferred to a hospital within 96 hours after admission to the Critical Access Hospital. Admitted From: Home Plans for Post Hospital Care: Home History of Present Illness: Mr. Headley is a 49 year old male who was admitted for suicidal ideation. Client states he felt like he wasn't getting the support he needed at home so he went and sat on a bridge and called 911. Client states he really just wanted to talk to someone. Client denies any history of suicide attempts and states he really is not at risk to hurt himself now. Wants counseling. States if he had someone to talk to when he needed support he would feel better. Currently linked with the [facility] but in the process of switching his services to [facility]. First noticed he was depressed in 2007. Diagnosed with Major Depression and PTSD in 2011. PTSD due to harassment from superiors in the . One prior hospitalization at the [facility] for similar circumstances. Prior med trials with Zoloft, Celexa, and Paxil. Client states they all worked initially but he built a tolerance after a while. Likely tachyphylaxis. Currently taking a combination of Paxil and Abilify. Finds Abilify helpful. Previously took Klonopin as well but depending on the doctor he saw he would be taken off of it based on the doctor's prescribing habits. Client states he took 0.5mg prn when it was prescribed. No AOD history. Physically he has had several joints replaced. He is also treated for HTN, HLD, and Diabetes. No family history of mental illness of any kind. Discussed options. Client would like set up with a psychiatrist and counselor through [facility]. He would also like his Paxil switched out for something different as he reports being on this medication for two years and no longer getting the same benefits. Discussed Effexor since client will get both a serotonin and norepiephrine component from it. Client states low energy is one of his biggest obstacles and he would like to try it. Discussed risks and side effects including the possibility that his blood pressure might go up. Will also restart low dose Klonopin to use prn. Doubt he will need a long admission. He is already denying any thoughts of self harm and reports he was just feeling like he needed to talk and feel supported. Past Med Surg Social Fam HX - Past Medical History Medical history: arthritis, diabetes, hyperlipidemia, hypertension, kidney stones, other - Past Psychiatric History Psychiatric history: Reports: anxiety, depression, previous psychiatric hospitalization Family psychiatric history: No Family History of Suicide: None - Past Surgical History Surgical History: knee replacement, orthopedic, other, other - Social History Smoking Status: Former smoker Smokeless Tobacco Status: Yes Alcohol use: occasionally Drug use: none - Family History Father Hx Family Cardiac Disorders: Yes ([place]) Mother Living Status: Hx Family Cardiac Disorders: Yes ([place]) Hx Family Endocrine Disorder: Yes (DM) Brother Hx Family Cardiac Disorders: Yes (HTN) Hx Family Endocrine Disorder: Yes (DM) Medications & Allergies Atorvastatin [Lipitor] 40 mg PO HS 10/08/17 [History] Lisinopril/Hydrochlorothiazide [Zestoretic 20-12.5 mg Tablet] 1 tab PO DAILY 10/08/17 [History] Metoprolol Succinate 100 mg PO DAILY 10/08/17 [History] Multivit-Min/FA/Lycopen/Lutein [Centrum Silver Tablet] 1 tab PO DAILY 10/08/17 [History] Meloxicam [Mobic] 7.5 mg PO DAILY 05/04/18 [History] PARoxetine HCl [Paroxetine HCl] 40 mg PO QPM 05/04/18 [History] metFORMIN [Glucophage] 500 mg PO BIDWM 05/04/18 [History] ARIPiprazole [Abilify] 5 mg PO QPM 12/16/18 [History] Aspirin [Lo-Dose Aspirin EC] 81 mg PO DAILY 12/16/18 [History] Eszopiclone 1 mg PO HS 12/16/18 [History] Testosterone [Striant] 30 mg PO BID 12/16/18 [History] Varenicline Tartrate [Chantix Continuing Months Pack] 1 mg PO AD 12/16/18 [History] Vitamin B Complex [Balanced B-50] 1 each PO DAILY 12/16/18 [History] Allergy/AdvReac Type Severity Reaction Status Date / Time No Known Allergies Allergy Verified 12/16/18 07:50 Review of Systems Constitutional: Denies: fever, chills, weakness, weight change Eyes: Denies: eye pain, vision change Ears, Nose, Throat: Denies: ear pain, throat pain, dental pain, hearing loss, congestion Cardiovascular: Denies: chest pain, palpitations, dyspnea on exertion Respiratory: Denies: cough, dyspnea, wheezes Gastrointestinal: Denies: abdominal pain, nausea, vomiting, diarrhea, constipation Genitourinary male: Denies: urgency, dysuria, frequency, genital lesions Musculoskeletal: Denies: joint swelling, joint pain Integumentary: Denies: rash, lesions, pruritus Neurological: Denies: headache, weakness, numbness, memory loss Endocrine: Denies: fatigue, heat or cold intolerance Hematologic/Lymphatic: Denies: easy bruising, lymphadenopathy Allergic/Immunologic: Denies: urticaria, itchy eyes Exam - HEENT Head exam IM: Present: atraumatic Eye exam IM: Present: EOMI, normal appearance, PERRL ENT exam IM: Present: normal exam - Neurological Neurological exam: Present: CN II-XII intact - Respiratory Respiratory exam IM: Present: CTAB - GI/Abdominal GI/Abdominal exam IM: Present: normal bowel sounds, soft. Absent: tenderness - Extremities Extremities exam IM: Present: full ROM - Skin Skin exam IM: Present: dry, warm - Constitutional Vitals: Temp Pulse Resp BP Pulse Ox 98.8 F 106 17 148/97 97 03/08/19 07:42 03/08/19 07:42 03/08/19 07:42 03/08/19 07:42 03/08/19 07:42 General appearance: obese - Musculoskeletal Gait: normal Station: relaxed Strength & Tone: normal for patient - Psychiatric Patient Orientation: Yes Person, Yes Time, Yes Place Level of alertness: Alert Behavior: calm, cooperative Psychomotor activity: Normal Eye Contact: Maintains Eye Contact Mood Description: Depressed Affect description: congruent with mood Speech Volume: Normal Speech pattern: normal rate, normal rhythm, normal tone, fluent, spontaneous Language & Vocabulary: consistent with education Thought Process: Linear, Goal Oriented Thought Content: Yes Suicidal ideation Perceptual Disturbances: No Auditory hallucinations, No Visual hallucinations Attention Span Ability: Capable of Focused Attention Memory Description: Grossly Intact Patient Reliability: Reliable Historian Fund of knowledge: Yes abstraction ability, Yes average, Yes aware of current events Intelligence Estimate: Average Judgment: Fair Insight: Partial Results - Drug Levels and Toxicology Drug Levels and Toxicology: Drug Levels and Toxicity 03/08/19 03/08/19 03/08/19 01:47 02:38 04:41 Urine Opiates Screen Negative Acetaminophen < 10 L Ur Barbiturates Screen Negative Ur Phencyclidine Scrn Negative Ur Amphetamines Screen Negative U Benzodiazepines Scrn Negative Urine Cocaine Screen Negative U Marijuana (THC) Screen Negative Ethyl Alcohol 130 H 58 H - Labs Labs: Laboratory Last Values WBC 6.7 K/mcL (4.3-11.1) 03/08/19 01:47 RBC 4.68 M/mcL (4.19-5.50) 03/08/19 01:47 Hgb 14.0 g/dL (12.9-16.9) 03/08/19 01:47 Hct 41.5 % (37.5-50.1) 03/08/19 01:47 MCV 88.7 fL (83.0-100.0) 03/08/19 01:47 MCH 29.9 pg (28.0-33.3) 03/08/19 01:47 MCHC 33.7 g/dL (31.6-35.5) 03/08/19 01:47 RDW 13.4 % (11.5-14.5) 03/08/19 01:47 Plt Count 218 K/mcL (140-400) 03/08/19 01:47 MPV 10.1 fL (9.4-12.4) 03/08/19 01:47 Immature Gran % 0.4 % (0-4) 03/08/19 01:47 Seg Neutrophils % 60.7 % 03/08/19 01:47 28.8 % 03/08/19 01:47 6.9 % 03/08/19 01:47 2.8 % 03/08/19 01:47 0.4 % 03/08/19 01:47 4.1 K/mcL (1.6-8.9) 03/08/19 01:47 1.9 K/mcL (0.6-4.6) 03/08/19 01:47 0.5 K/mcL (0.0-1.3) 03/08/19 01:47 0.2 K/mcL (0.0-0.6) 03/08/19 01:47 0.0 K/mcL (0.0-0.2) 03/08/19 01:47 Sodium 135 mEq/L (136-145) L 03/08/19 01:47 Potassium 4.2 mEq/L (3.5-5.1) 03/08/19 01:47 Chloride 98 mEq/L (98-107) 03/08/19 01:47 Carbon Dioxide 22 mEq/L (23-29) L 03/08/19 01:47 BUN 12 mg/dL (6-20) 03/08/19 01:47 1.03 mg/dL (0.70-1.30) 03/08/19 01:47 Est GFR ( Amer) > 60 (> 60) 03/08/19 01:47 Est GFR (Non-Af Amer) > 60 (> 60) 03/08/19 01:47 12 (6-26) 03/08/19 01:47 Glucose 156 mg/dL (70-105) H 03/08/19 01:47 283 (280-300) 03/08/19 01:47 Calcium 9.2 mg/dL (8.6-10.3) 03/08/19 01:47 Yellow (Yellow) 03/08/19 02:38 Clear (Clear) 03/08/19 02:38 6.0 pH Units (5.0-8.0) 03/08/19 02:38 Ur Specific [place] 1.009 (1.010-1.025) L 03/08/19 02:38 Negative mg/dL (Neg-Trace) 03/08/19 02:38 Normal mg/dL (Normal) 03/08/19 02:38 Negative mg/dL (Negative) 03/08/19 02:38 Negative (Negative) 03/08/19 02:38 Negative (Negative) 03/08/19 02:38 Negative (Negative) 03/08/19 02:38 Normal mg/dL (Normal) 03/08/19 02:38 Ur Leukocyte Esterase Negative (Negative) 03/08/19 02:38 Salicylates < 2.5 mg/dL (15.0-30.0) L 03/08/19 01:47 Negative ng/mL (Eravgv=810) 03/08/19 02:38 Ur Buprenorphine Scrn Negative ng/mL (Cutoff=5) 03/08/19 02:38 Acetaminophen < 10 mcg/mL (10-20) L 03/08/19 01:47 Ur Barbiturates Screen Negative ng/mL (Nptjbj=369) 03/08/19 02:38 Ur Phencyclidine Scrn Negative ng/mL (Cutoff=25) 03/08/19 02:38 Ur Amphetamines Screen Negative ng/mL (Gspcmp=6956) 03/08/19 02:38 U Benzodiazepines Scrn Negative ng/mL (Mvxrel=199) 03/08/19 02:38 Negative ng/mL (Cutoff= 300) 03/08/19 02:38 U Marijuana (THC) Screen Negative ng/mL (Cutoff = 50) 03/08/19 02:38 Ur Drug Screen Interp See Below 03/08/19 02:38 Ethyl Alcohol 58 mg/dL (Less than 10) H 03/08/19 04:41 Assessment and Plan (1) Major depress dis, severe Current visit: Yes Status: Acute Plan: Admit inpatient for safety and stabilization, Close observation, Suicide Precautions per unit protocol, Encourage participation in unit milieu, Group Therapy, Monitor sleep, Monitor appetite Risks, benefits, side effects, alternatives discussed w/pt: Yes Patient agreeable to treatment: Yes Plans for Post Hospital Care: Home Estimated Length of Stay (Days): 3 (2) Post traumatic stress disorder (PTSD) Current visit: Yes Status: Acute Plan: Admit inpatient for safety and stabilization, Close observation, Suicide Precautions per unit protocol, Encourage participation in unit milieu, Group Therapy, Monitor sleep, Monitor appetite Risks, benefits, side effects, alternatives discussed w/pt: Yes Patient agreeable to treatment: Yes Plans for Post Hospital Care: Home Estimated Length of Stay (Days): 3
[2019-03-08] MEDS: Aspirin Enteric Coated 81 MG Tablet PO SCH (12:09)
[2019-03-08] MEDS: Venlafaxine XR (24 HR) 37.5 MG CAP.ER.24H PO SCH (12:09)
[2019-03-08] MEDS: Lisinopril-HCTZ 20-12.5mg TABLET PO SCH (12:10)
[2019-03-08] MEDS: Metoprolol 100 MG TABLET PO SCH (12:10)
[2019-03-08] MEDS: Nicotine 21 MG PATCH.TD24 TD SCH (12:10)
[2019-03-08] MEDS: Multivit/Ca/Min/Fe/FA 1 TAB TABLET PO SCH (12:10)
[2019-03-08] MEDS: *HR* Metformin 500 MG TABLET PO SCH (18:18)
[2019-03-08] MEDS ORDERED: ARIPiprazole 5 MG TABLET PO SCH (21:00)
[2019-03-09] MEDS: Lisinopril-HCTZ 20-12.5mg TABLET PO SCH (09:04)
[2019-03-09] MEDS: Metoprolol 100 MG TABLET PO SCH (09:05)
[2019-03-09] MEDS: Multivit/Ca/Min/Fe/FA 1 TAB TABLET PO SCH (09:05)
[2019-03-09] MEDS: *HR* Metformin 500 MG TABLET PO SCH (09:05)
[2019-03-09] MEDS: Aspirin Enteric Coated 81 MG Tablet PO SCH (09:05)
[2019-03-09] MEDS: Venlafaxine XR (24 HR) 37.5 MG CAP.ER.24H PO SCH (09:05)
[2019-03-09] MEDS: Nicotine 21 MG PATCH.TD24 TD SCH (09:06)
--- NOTE | 2019-03-09 09:25 | Discharge Summary ---
Date of Encounter: 03/09/19 Time of Encounter: 09:21 Diagnosis - Discharge Diagnosis (1) Major depress dis, severe Status: Acute (2) Post traumatic stress disorder (PTSD) Status: Acute Medications - Discharge Medications Prescriptions: Venlafaxine XR (24 HR) [Effexor Xr] 37.5 mg PO DAILY #30 cap.er.24h Atorvastatin [Lipitor] 40 mg PO HS 10/08/17 [History] Lisinopril/Hydrochlorothiazide [Zestoretic 20-12.5 mg Tablet] 1 tab PO DAILY 10/08/17 [History] Metoprolol Succinate 100 mg PO DAILY 10/08/17 [History] Multivit-Min/FA/Lycopen/Lutein [Centrum Silver Tablet] 1 tab PO DAILY 10/08/17 [History] ARIPiprazole [Abilify] 5 mg PO QPM 12/16/18 [History] Aspirin [Lo-Dose Aspirin EC] 81 mg PO DAILY 12/16/18 [History] Testosterone [Striant] 30 mg PO BID 12/16/18 [History] Vitamin B Complex [Balanced B-50] 1 each PO DAILY 12/16/18 [History] Metformin HCl [Glucophage] 500 mg PO BID 03/08/19 [History] Sildenafil Citrate [Viagra] 100 mg PO DAILY PRN 03/08/19 [History] Venlafaxine XR (24 HR) [Effexor Xr] 37.5 mg PO DAILY #30 cap.er.24h 03/09/19 [Rx] clonazePAM [Klonopin] 0.5 mg PO BID PRN tablet 03/09/19 [Rx] Allergy/AdvReac Type Severity Reaction Status Date / Time No Known Allergies Allergy Verified 12/16/18 07:50 Results Procedures and tests throughout hospitalization: Completed Lab Orders Category Date Time Status Acetaminophen Stat Lab 03/08/19 01:47 Completed Basic Metabolic Panel Stat Lab 03/08/19 01:47 Completed Complete Blood Count [HEME] Stat Lab 03/08/19 01:47 Completed Drug Screen, Urine [UCHEM] Stat Lab 03/08/19 02:38 Completed Ethanol Stat Lab 03/08/19 01:47 Completed Ethanol Stat Lab 03/08/19 04:41 Completed Salicylate Stat Lab 03/08/19 01:47 Completed Urinalysis reflex Microscopic [URIN] Stat Lab 03/08/19 02:38 Completed Provider Date of admission: 03/08/19 13:47 Primary care physician: PCP NONE Discharging clinician: Payton Cerna Psychiatry Exam - Constitutional Vitals: Temp Pulse Resp BP Pulse Ox 98.4 F 90 16 121/74 99 03/08/19 21:29 03/08/19 21:29 03/08/19 21:29 03/08/19 21:29 03/08/19 21:29 General appearance: obese - Musculoskeletal Gait: normal Station: relaxed Strength & Tone: normal for patient - Psychiatric Patient Orientation: Yes Person, Yes Time, Yes Place Level of alertness: Alert Behavior: calm, cooperative Psychomotor activity: Normal Eye Contact: Maintains Eye Contact Mood Description: Euthymic/stable Affect description: congruent with mood, full range Speech Volume: Normal Speech pattern: normal rate, normal rhythm, normal tone, fluent, spontaneous Language & Vocabulary: consistent with education Thought Process: Linear, Goal Oriented Thought Content: No Suicidal ideation, No Homicidal ideation, No Overt delusions Perceptual Disturbances: No Auditory hallucinations, No Visual hallucinations Attention Span Ability: Capable of Focused Attention Memory Description: Grossly Intact Patient Reliability: Reliable Historian Fund of knowledge: Yes abstraction ability, Yes aware of current events Intelligence Estimate: Average Judgment: Fair Insight: Partial Hospital Course Hospital course: Mr. Headley is a 49 year old male who was admitted for SI. Client reported at the time of his initial intake with this play writer that he did not want to but he needed someone to "talk to." Client stated he loves his fiancee but that she is a "strong woman" and he does not get the "empathy" from her that he needs when he is stressed. Client was taking Paxil at the time of admission which he found helpful in the beginning but felt like the effects had worn off over time. He was started on Effexor with good clinical results. This morning client states he is thinking clearer. Mood has improved. Denying SI, intent, or plan. He is bright, reactive, and future oriented. He is excited to follow up with a psychiatrist and therapist and states he will be fine provided he has someone to talk to on a regular basis. Denies HI/AH/VH. Polite and respectful on the un it. Sleeping and eating well. Looks good for discharge. Total time spent with client greater than 30 minutes. Patient was educated of his diagnosis and the risks, benefits, and side effects of this treatment and alternative treatment options and was monitored for responsiveness and side effects. Mood, anxiety, sleep, appetite, and interest improved, as did future orientation. Self-harm thoughts subsided, thinking cleared, psychosis resolved, and mood stabilized. Patient was able to attend both individual and group therapy sessions as well as meeting with the psychiatrist daily and urged to discuss any medication or treatment issues or other concerns. The patient was educated primarily by verbal means about their diagnosis and manifestations in their life. The option for treatment including group and individual therapy programming was offered to the patient in the use of medications with all their potential risks, benefits, and side effects were discussed with the patient at length. The patient was given the opportunity to ask questions and was noted to participate in the treatment in the planning process. The patient felt ready and eager to be discharged from the inpatient psychiatric unit to continue on with treatment as an outpatient. The patient agreed that he is safe for this disposition. The patient was considered to be able to participate in informed consent and decision making with respect to medical, legal, and financial issues of the time of discharge. At the time of discharge the patient adamantly denied any concerns for lethality including suicidal or homicidal thoughts ideations or plans and was future oriented toward ongoing mental health care, medical follow-up and sobriety. - Time Spent with Patient Total time spent providing and/or coordinating discharge services: Assessment and Plan - Patient/Caregiver Discharge Instructions Activity: resume usual activities as tolerated Diet: low fat, low cholesterol - Follow up [facility] - 03/17/19 9:20 am (You have an appointment scheduled for Sunday, March 17, 2019 at 9:[address] Audelia Hernandez for medication management. Please ask about being scheduled with a therapist during this visit. Please contact the office at least 24 hours in advance if you are unable to keep your appointment(s). ) Emilio Quesada MD [Partnered Physician] - 07/13/19 9:35 am (You have an appointment scheduled with this provider on Saturday, July 13, 2019 at 9:35 AM. Please keep all of your healthcare providers informed of any changes in your medications, treatments or medical conditions.) Max Michaud [Partnered Physician] - 03/10/19 3:30 pm (You have an appointment scheduled with your primary care provider on Friday, March 10, 2019 at 3:30 PM. Please keep your primary care provider informed of any changes in your medications, treatments or medical conditions.) Functional capacity at discharge: independent ambulation Overall status at discharge: Stable Disposition: Home, Self-Care Quality - Multiple Antipsychotics Patient discharged on 2 or more antipsychotic medications: No Procedures - Procedures Procedures: Medication Management, Crisis Stabilization, Supportive Therapy, Group Therapy
[2019-03-09 10:35] VITALS: BP 142/88
== END 2019-03-09 10:30 | disposition home or self-care (01) | DRG 885 ==
LOC: 1ANU 01:12 → EMEROOARM 01:12 → 1ANU 08:53
PROVIDERS: ADMIT Psychiatry & Neurology Psychiatry; ATTEND Psychiatry & Neurology Psychiatry

== ENCOUNTER 2019-10-14 10:54 | Inpatient (IN) ==
[2019-10-14 11:36] LABS: Basophils % 0.3 %; Eosinophils # 0.1 K/mcL (0.0-0.6); Eosinophils % 1.8 %; Hematocrit 40.2 % (37.5-50.1); Hemoglobin 13.8 g/dL (12.9-16.9); Immature Granulocytes % 0.4 % (0-4); Lymphocytes # 1.4 K/mcL (0.6-4.6); Mean Corpuscular HGB Conc 34.3 g/dL (31.6-35.5); Mean Corpuscular Hemoglobin 30.4 pg (28.0-33.3); Mean Corpuscular Volume 88.5 fL (83.0-100.0); Mean Platelet Volume 10.2 fL (9.4-12.4); Monocytes # 0.6 K/mcL (0.0-1.3); Monocytes % 7.4 %; Neutrophils # 5.6 K/mcL (1.6-8.9); Platelet Count 190 K/mcL (140-400); Red Blood Count 4.54 M/mcL (4.19-5.50); Red Cell Distribution Width 13.6 % (11.5-14.5); Segmented Neutrophils % 72.1 %; White Blood Count 7.7 K/mcL (4.3-11.1)
[2019-10-14] MEDS ORDERED: 0.9 % Sodium Chloride 500 ML IVC ONE (11:47)
[2019-10-14 11:49] LABS: Prothrombin Time 11.1 Seconds (9.4-12.1)
[2019-10-14 11:57] LABS: BUN/Creatinine Ratio 10 (6-26); Blood Urea Nitrogen 11 mg/dL (6-20); Calcium 9.5 mg/dL (8.6-10.3); Carbon Dioxide 26 mEq/L (23-29); Chloride 98 mEq/L (98-107); Glucose 119 mg/dL (70-105); Osmolality,Calculated 275 (280-300); Potassium 4.3 mEq/L (3.5-5.1); Sodium 132 mEq/L (136-145); eGFR For African Americans > 60 (> 60); eGFR For Non-African Americans > 60 (> 60)
[2019-10-14 11:58] LABS: Troponin I < 0.03 ng/mL (< 0.04)
[2019-10-14] MEDS ORDERED: *HR* OxyCODONE Immed Rel 5 MG TABLET PO STA (12:19)
[2019-10-14] MEDS ORDERED: *HR* FentaNYL (PF) 100 MCG/2 ML VIAL IVP ONE (13:07)
[2019-10-14] MEDS ORDERED: Naloxone 0.4 MG/ML INJ IVP PRN (15:21)
[2019-10-14] MEDS ORDERED: *HR* OxyCODONE/APAP 7.5/325 TABLET PO PRN (16:43)
[2019-10-14] MEDS ORDERED: clonazePAM 0.5 MG TABLET PO PRN (17:00)
[2019-10-14] MEDS ORDERED: *HR* Dextrose 50 % in Water (Syg) 50 ML SYRINGE IVP PRN (17:01)
[2019-10-14] MEDS ORDERED: Dextrose Gel 15 GM/37.5 ML TUBE PO PRN ×2 (17:01)
[2019-10-14] MEDS ORDERED: D5% in Water 1,000 ML IVC PRN (17:01)
[2019-10-14] MEDS ORDERED: Ketorolac 30 MG/ML VIAL IVP ONE (18:17)
[2019-10-14] MEDS: ARIPiprazole 5 MG TABLET PO SCH (18:49)
[2019-10-14] MEDS: *HR* Heparin 5,000 UNIT/ML VIAL SQ SCH (20:58)
[2019-10-14] MEDS: *HR* HYDROmorphone (PF) 1 MG/ML SYRINGE IVP PRN (20:58)
[2019-10-15] MEDS: *HR* HYDROmorphone (PF) 1 MG/ML SYRINGE IVP PRN ×6 (00:03→22:58)
[2019-10-15] MEDS: *HR* Heparin 5,000 UNIT/ML VIAL SQ SCH ×3 (05:56→19:58)
[2019-10-15] MEDS ORDERED: Saline Nasal Spray 44 ML BOTTLE NS PRN (06:04)
[2019-10-15] MEDS: Metoprolol XL (24 HR) Succ 50 MG TAB.ER.24H PO SCH (08:22)
[2019-10-15] MEDS: Vitamin B Complex/Vit C/Vit E 1 EACH TABLET PO SCH (08:23)
[2019-10-15] MEDS: Lisinopril-HCTZ 20-12.5mg TABLET PO SCH (08:23)
[2019-10-15] MEDS: Venlafaxine XR (24 HR) 37.5 MG CAP.ER.24H PO SCH (08:23)
[2019-10-15] MEDS: Aspirin Enteric Coated 81 MG Tablet PO SCH (08:24)
[2019-10-15] MEDS: Insulin LISPRO 300 UNITS/3 ML VIAL SQ SCH ×3 (08:26→16:25)
[2019-10-15] MEDS ORDERED: Isovue-370 500 ML BOTTLE IVP ONE (08:35)
[2019-10-15] MEDS: ARIPiprazole 5 MG TABLET PO SCH (18:13)
[2019-10-15] MEDS ORDERED: Temazepam 15 MG CAPSULE PO ONE (20:24)
[2019-10-16] MEDS: *HR* Heparin 5,000 UNIT/ML VIAL SQ SCH ×3 (04:59→23:20)
[2019-10-16] MEDS: Metoprolol XL (24 HR) Succ 50 MG TAB.ER.24H PO SCH (07:06)
[2019-10-16 07:15] LABS: Basophils % 0.6 %; Eosinophils # 0.2 K/mcL (0.0-0.6); Hematocrit 39.6 % (37.5-50.1); Hemoglobin 13.5 g/dL (12.9-16.9); Immature Granulocytes % 0.6 % (0-4); Lymphocytes # 1.3 K/mcL (0.6-4.6); Lymphocytes % 25.1 %; Mean Corpuscular HGB Conc 34.1 g/dL (31.6-35.5); Mean Corpuscular Hemoglobin 30.3 pg (28.0-33.3); Mean Corpuscular Volume 88.8 fL (83.0-100.0); Mean Platelet Volume 10.3 fL (9.4-12.4); Monocytes # 0.5 K/mcL (0.0-1.3); Neutrophils # 3.2 K/mcL (1.6-8.9); Platelet Count 177 K/mcL (140-400); Red Blood Count 4.46 M/mcL (4.19-5.50); Red Cell Distribution Width 13.6 % (11.5-14.5); Segmented Neutrophils % 60.7 %; White Blood Count 5.3 K/mcL (4.3-11.1)
[2019-10-16] MEDS ORDERED: Acetaminophen IV 1,000 MG/100 ML INFUS..BTL ONE (07:23)
[2019-10-16] MEDS ORDERED: Famotidine 20 MG/2 ML VIAL ONE (07:23)
[2019-10-16] MEDS ORDERED: Ondansetron 4 MG/2 ML VIAL ONE (07:27)
[2019-10-16] MEDS ORDERED: Lidocaine -MPF 2% 2 ML VIAL ONE ×2 (07:27→07:48)
[2019-10-16] MEDS ORDERED: Dexamethasone 4 MG/ML VIAL ONE (07:27)
[2019-10-16] MEDS ORDERED: *HR* FentaNYL (PF) 100 MCG/2 ML VIAL ONE (07:28)
[2019-10-16] MEDS ORDERED: *HR* Propofol 200 MG/20 ML VIAL IVP ONE (07:28)
[2019-10-16] MEDS ORDERED: *HR* Midazolam HCl 2 MG/2 ML VIAL ONE (07:28)
[2019-10-16] MEDS ORDERED: Clindamycin 900 MG/50 ML 900 MG/50 ML IV.SOLN IVPB ONE ×2 (07:30→08:00)
[2019-10-16] MEDS ORDERED: *HR* OxyCODONE Immed Rel 5 MG TABLET PO PRN (07:34)
[2019-10-16] MEDS ORDERED: *HR* Promethazine 25 MG/ML VIAL IVP PRN (07:34)
[2019-10-16] MEDS ORDERED: Ondansetron 4 MG/2 ML VIAL IVP ONE (07:34)
[2019-10-16] MEDS ORDERED: *HR* HYDROmorphone (PF) 1 MG/ML SYRINGE IVP PRN (07:34)
[2019-10-16] MEDS: Albuterol 2.5 MG/3 ML NEBULIZER IH ONE ×2 (07:37→09:42)
[2019-10-16 07:38] LABS: BUN/Creatinine Ratio 12 (6-26); Blood Urea Nitrogen 12 mg/dL (6-20); Calcium 9.5 mg/dL (8.6-10.3); Carbon Dioxide 28 mEq/L (23-29); Chloride 99 mEq/L (98-107); Glucose 138 mg/dL (70-105); Osmolality,Calculated 286 (280-300); Potassium 4.3 mEq/L (3.5-5.1); Sodium 137 mEq/L (136-145); eGFR For African Americans > 60 (> 60); eGFR For Non-African Americans > 60 (> 60)
[2019-10-16] MEDS ORDERED: Ropivacaine/PF 0.5% 30 ML VIAL ONE (07:47)
[2019-10-16] MEDS: Lisinopril-HCTZ 20-12.5mg TABLET PO SCH (07:49)
[2019-10-16] MEDS: Venlafaxine XR (24 HR) 37.5 MG CAP.ER.24H PO SCH (07:49)
[2019-10-16] MEDS: Insulin LISPRO 300 UNITS/3 ML VIAL SQ SCH ×3 (07:49→17:10)
[2019-10-16] MEDS: Aspirin Enteric Coated 81 MG Tablet PO SCH (07:49)
[2019-10-16] MEDS: Vitamin B Complex/Vit C/Vit E 1 EACH TABLET PO SCH (07:50)
[2019-10-16] MEDS ORDERED: *HR* Dextrose 50 % in Water (Syg) 50 ML SYRINGE IVP PRN (10:41)
[2019-10-16] MEDS ORDERED: Naloxone 0.4 MG/ML INJ IVP PRN (10:41)
[2019-10-16] MEDS ORDERED: Saline Nasal Spray 44 ML BOTTLE NS PRN (10:41)
[2019-10-16] MEDS ORDERED: Dextrose Gel 15 GM/37.5 ML TUBE PO PRN ×2 (10:41)
[2019-10-16] MEDS ORDERED: D5% in Water 1,000 ML IVC PRN (10:41)
[2019-10-16] MEDS: *HR* OxyCODONE/APAP 7.5/325 TABLET PO PRN (11:08)
[2019-10-16] MEDS: *HR* HYDROmorphone (PF) 1 MG/ML SYRINGE IVP PRN ×4 (12:23→23:20)
[2019-10-16] MEDS: Clindamycin 900 MG/50 ML 900 MG/50 ML IV.SOLN IVPB SCH ×2 (15:48→23:20)
[2019-10-16] MEDS: ARIPiprazole 5 MG TABLET PO SCH (17:08)
[2019-10-17] MEDS: *HR* Heparin 5,000 UNIT/ML VIAL SQ SCH ×3 (06:03→21:53)
[2019-10-17] MEDS: *HR* HYDROmorphone (PF) 1 MG/ML SYRINGE IVP PRN ×4 (06:06→20:04)
[2019-10-17] MEDS: Insulin LISPRO 300 UNITS/3 ML VIAL SQ SCH ×3 (07:52→16:50)
[2019-10-17] MEDS: Venlafaxine XR (24 HR) 37.5 MG CAP.ER.24H PO SCH (07:53)
[2019-10-17] MEDS: Vitamin B Complex/Vit C/Vit E 1 EACH TABLET PO SCH (07:53)
[2019-10-17] MEDS: Metoprolol XL (24 HR) Succ 50 MG TAB.ER.24H PO SCH (07:53)
[2019-10-17] MEDS: Aspirin Enteric Coated 81 MG Tablet PO SCH (07:53)
[2019-10-17] MEDS: Lisinopril-HCTZ 20-12.5mg TABLET PO SCH (07:53)
[2019-10-17] MEDS: Clindamycin 900 MG/50 ML 900 MG/50 ML IV.SOLN IVPB SCH (07:54)
[2019-10-17] MEDS: *HR* OxyCODONE/APAP 7.5/325 TABLET PO PRN ×2 (09:04→18:28)
[2019-10-17] MEDS: clonazePAM 0.5 MG TABLET PO PRN ×2 (09:04→18:28)
[2019-10-17] MEDS: ARIPiprazole 5 MG TABLET PO SCH (18:29)
[2019-10-18] MEDS: *HR* Heparin 5,000 UNIT/ML VIAL SQ SCH (05:20)
[2019-10-18] MEDS: *HR* OxyCODONE/APAP 7.5/325 TABLET PO PRN (06:45)
[2019-10-18] MEDS: Insulin LISPRO 300 UNITS/3 ML VIAL SQ SCH (07:48)
[2019-10-18] MEDS: Lisinopril-HCTZ 20-12.5mg TABLET PO SCH (07:53)
[2019-10-18] MEDS: Metoprolol XL (24 HR) Succ 50 MG TAB.ER.24H PO SCH (07:53)
[2019-10-18] MEDS: Venlafaxine XR (24 HR) 37.5 MG CAP.ER.24H PO SCH (07:54)
[2019-10-18] MEDS: Vitamin B Complex/Vit C/Vit E 1 EACH TABLET PO SCH (07:54)
[2019-10-18] MEDS: *HR* HYDROmorphone (PF) 1 MG/ML SYRINGE IVP PRN ×2 (07:54→11:07)
[2019-10-18] MEDS: Aspirin Enteric Coated 81 MG Tablet PO SCH (07:54)
[2019-10-18 11:16] VITALS: BP 120/84
== END 2019-10-18 11:41 | disposition home or self-care (01) | DRG 493 ==
LOC: 3NENU 10:54 → EMEROOARM 10:54 → SUATTDRO 14:48 → 3NENU 15:57
PROVIDERS: ADMIT Internal Medicine; ATTEND Internal Medicine